=== PATIENT | female | born 1965 | race Caucasian/White ===

== ENCOUNTER 2016-11-29 17:48 | Emergency (ER) | payer MEDICAID ==
[~2016-11-29] VITALS: Ht 160 cm; Wt 75.0 kg
[2016-11-29] MEDS ORDERED: KETOROLAC 60MG/2ML VIAL IM ONE (18:30)
[2016-11-29 20:35] LABS: CLARITY URINE CLEAR (CLEAR); COLOR URINE YELLOW (YELLOW); GLUCOSE URINE NEGATIVE (NEGATIVE); KETONES URINE NEGATIVE (NEGATIVE); LEUKOCYTE ESTERASE URINE NEGATIVE (NEGATIVE); NITRITE URINE NEGATIVE (NEGATIVE); OCCULT BLOOD URINE TRACE (NEGATIVE); PH URINE 6.5 (4.5-8.0); PROTEIN URINE NEGATIVE (NEGATIVE); SPECIFIC GRAVITY URINE 1.011 (1.005-1.030); UROBILINOGEN URINE 0.2 E.U./dL (0.2-1.0)
[2016-11-29 21:21] LABS: BACTERIA URINE TRACE
[2016-11-29 21:22] LABS: SQUAMOUS EPITHELIAL CELL URINE 1+ /lpf (RARE/1+)
[2016-11-29 21:39] VITALS: BP 116/79
== END 2016-11-29 21:42 | disposition home or self-care (01) ==
LOC: ER 17:49
DX: M54.5 Low back pain (principal)
CPT/HCPCS: 81001; 81025; 96372; 99283; J1885